=== PATIENT | female | born 1980 | race Caucasian/White ===

== ENCOUNTER 2019-03-04 11:26 | Inpatient (IN) | payer BC, OTHER ==
[~2019-03-04] VITALS: Ht 157.5 cm; Wt 86.2 kg
[2019-03-04] MEDS ORDERED: MINERAL OIL 30 ML UDC PO ONE (11:27)
[2019-03-04] MEDS ORDERED: OXYTOCIN/0.9 % SODIUM CHLORIDE 1,000 ML IV SCH (12:03)
[2019-03-04] MEDS ORDERED: LR 1,000 ML IV SCH (12:03)
[2019-03-04] MEDS ORDERED: LR 1,000 ML IV ONE (12:03)
[2019-03-04] MEDS ORDERED: NALBUPHINE HCL 10 MG/ML AMP IVP PRN (12:15)
[2019-03-04] MEDS ORDERED: TERBUTALINE SULFATE 1 MG/ML VIAL SUBCUT ONE (12:15)
[2019-03-04 12:34] LABS: BASOPHILS % (AUTO) 0.3 % (0.0-2.0); EOSINOPHILS % (AUTO) 0.2 % (0.0-4.0); HEMATOCRIT 34.7 % (36-48); HEMOGLOBIN 11.8 g/dL (12.0-16.0); LYMPHOCYTES # (AUTO) 1.3 K/uL (1.0-5.5); LYMPHOCYTES % (AUTO) 13.6 % (20.5-51.5); MEAN CORPUSCULAR HEMOGLOBIN 28 pg (27-31); MEAN CORPUSCULAR HGB CONC 34 % (32-36); MEAN CORPUSCULAR VOLUME 83 fL (79.0-98.0); MONOCYTES # (AUTO) 0.6 K/uL (0.0-1.0); MONOCYTES % (AUTO) 5.6 % (1.7-9.3); NEUTROPHILS # (AUTO) 7.9 K/uL (1.8-7.7); NEUTROPHILS % (AUTO) 80.3 % (40.0-70.0); PLATELET COUNT (AUTO) 228 K/uL (130-430); RED CELL DISTRIBUTION WIDTH 13.9 % (9.0-15.0); WHITE BLOOD COUNT (AUTO) 9.8 K/uL (4.8-10.8)
[2019-03-04 13:18] VITALS: BP_SYST 133
[2019-03-04] MEDS ORDERED: OXYTOCIN 10 UNIT/ML VIAL ONE (14:24)
[2019-03-04] MEDS ORDERED: OXYTOCIN/0.9 % SODIUM CHLORIDE 1,000 ML IV ONE (14:40)
[2019-03-04] MEDS ORDERED: OXYCODONE/ACETAMINOPHEN 5-325 TABLET PO PRN ×2 (14:45)
[2019-03-04] MEDS ORDERED: LANOLIN 7 GM OINT. TP PRN (14:45)
[2019-03-04] MEDS ORDERED: DERMOPLAST SPRAY TP PRN (14:45)
[2019-03-04] MEDS ORDERED: LR IV SCH (15:30)
[2019-03-04] MEDS ORDERED: OXYTOCIN IV SCH (15:30)
[2019-03-04] MEDS: IBUPROFEN 800 MG TABLET PO PRN (18:30)
[2019-03-04] MEDS ORDERED: TEMAZEPAM 15 MG CAPSULE PO PRN (21:00)
[2019-03-05] MEDS: LEVOTHYROXINE SODIUM 0.125 MG TABLET PO SCH (06:45)
[2019-03-05 07:10] LABS: BASOPHILS % (AUTO) 0.4 % (0.0-2.0); EOSINOPHILS # (AUTO) 0.1 K/uL (0.0-0.4); EOSINOPHILS % (AUTO) 0.6 % (0.0-4.0); HEMOGLOBIN 11.3 g/dL (12.0-16.0); LYMPHOCYTES # (AUTO) 1.7 K/uL (1.0-5.5); LYMPHOCYTES % (AUTO) 19.5 % (20.5-51.5); MEAN CORPUSCULAR HEMOGLOBIN 28 pg (27-31); MEAN CORPUSCULAR HGB CONC 33 % (32-36); MEAN CORPUSCULAR VOLUME 84 fL (79.0-98.0); MONOCYTES # (AUTO) 0.6 K/uL (0.0-1.0); MONOCYTES % (AUTO) 7.4 % (1.7-9.3); NEUTROPHILS # (AUTO) 6.2 K/uL (1.8-7.7); NEUTROPHILS % (AUTO) 72.1 % (40.0-70.0); PLATELET COUNT (AUTO) 224 K/uL (130-430); RED BLOOD CELL COUNT(AUTO) 4.04 MIL/uL (4.2-6.2); RED CELL DISTRIBUTION WIDTH 14.1 % (9.0-15.0); WHITE BLOOD COUNT (AUTO) 8.6 K/uL (4.8-10.8)
[2019-03-05] MEDS: IBUPROFEN 800 MG TABLET PO PRN ×2 (09:36→18:23)
[2019-03-06] MEDS ORDERED: IBUP-1971 PO (05:22)
[2019-03-06] MEDS: LEVOTHYROXINE SODIUM 0.125 MG TABLET PO SCH (05:55)
== END 2019-03-06 12:25 | disposition home or self-care (01) | DRG 807 ==
LOC: SPU 11:26 → OBSVTOIN 12:03 → SPU 18:00
PROVIDERS: ADMIT Specialist; ATTEND Specialist
PROC: 10E0XZZ Delivery of Products of Conception, External Approach (ICD-10-PCS; principal; 2019-03-04)
DX: O69.81X0 Labor and delivery complicated by cord around neck, without compression, not applicable or unspecified (principal); Z37.0 Single live birth; Z3A.40 40 weeks gestation of pregnancy
CPT/HCPCS: 36415; 81002-TC; 85025; 86592; 86886; 86900; 86901; G0378; J2590; J7120